=== PATIENT | male | born 1930 | race Caucasian/White ===

== ENCOUNTER 2018-10-11 01:28 | Emergency (ER) | payer MEDICARE, BC ==
[~2018-10-11] VITALS: Ht 170.2 cm; Wt 90.7 kg
[~2018-10-11 01:28] MED LIST: ACYC400; ALPR.25 PO; AMLO5 PO; ASPI325; ASPI81CH PO; ASPI81EC; ATEN25; ATEN50 PO; ATOR40TA; CALCA500CH PO; CALCAVITDA PO; CALGLU500; CHEMO; CILO100 PO; COLE1 PO; COLESTID1 GM PO; CYPR4; Dexamethasone4 MG PO; Diovan160 MG; ERGO400 PO; ERGO50000 PO; FAMO20; FAMO20 PO; FISH OIL 1,0001 EAC1 PO; FISH1000; FOSI10; HYDACE5 PO; ISODIN20 PO; ISOMON20; Isosorbide Mono30 MG PO; KYPROLIS30 MG; MULVITMINF; NAPR500; NEBI5 PO; OMEG1CAP30 PO; PROM25 PO; PROM25S PR; Synthroid175 MCG PO; TICA90TA PO; TOBDEXOPO OP; VALS80 PO; Zithromax250 MG PO; [UNRECOGNIZED DRUG - CODE]; [UNRECOGNIZED DRUG - CODE] PO
[2018-10-11] MEDS ORDERED: COLESTID1 GM PO (02:26)
[2018-10-11] MEDS ORDERED: ERGO400 PO (02:26)
[2018-10-11] MEDS ORDERED: Isosorbide Mono60 MG PO (02:27)
[2018-10-11] MEDS ORDERED: VALS80 PO (02:27)
[2018-10-11] MEDS ORDERED: AMLO5 PO (02:27)
[2018-10-11] MEDS ORDERED: FAMO20 PO (02:28)
[2018-10-11] MEDS ORDERED: PROM25 PO (02:28)
[2018-10-11] MEDS ORDERED: TICA90TA PO (02:28)
[2018-10-11] MEDS ORDERED: Aspir 8181 MG PO (02:28)
[2018-10-11] MEDS ORDERED: OMEG1CAP30 PO (02:28)
== END 2018-10-11 05:00 | disposition home or self-care (01) ==
LOC: ER 01:28
DX: S60.212A Contusion of left wrist, initial encounter (principal); W22.8XXA Striking against or struck by other objects, initial encounter; Z88.8 Allergy status to other drugs, medicaments and biological substances; Z88.2 Allergy status to sulfonamides; Z88.1 Allergy status to other antibiotic agents; Z79.899 Other long term (current) drug therapy; Z79.82 Long term (current) use of aspirin; I25.10 Atherosclerotic heart disease of native coronary artery without angina pectoris; I25.2 Old myocardial infarction; Z86.73 Personal history of transient ischemic attack (TIA), and cerebral infarction without residual deficits; Z87.891 Personal history of nicotine dependence
CPT/HCPCS: 73110; 99283-25

== ENCOUNTER 2018-11-05 09:29 | Emergency (ER) | payer MEDICARE, BC ==
[~2018-11-05] VITALS: Ht 167.6 cm; Wt 72.6 kg
[~2018-11-05 09:29] MED LIST changes: +Aspir 8181 MG PO; +Isosorbide Mono60 MG PO
[2018-11-05 10:13] LABS: BASOPHILS ABSOLUTE AUTO 0.02 K/mm3 (0.00-0.23); BASOPHILS PERCENT AUTO 0 % (0-2); EOSINOPHILS ABSOLUTE AUTO 0.04 K/mm3 (0.00-0.68); EOSINOPHILS PERCENT AUTO 1 % (0-6); Hematocrit 38.5 % (37.0-53.0); Hemoglobin 12.4 g/dL (13.5-17.5); IMMATURE GRAN ABSOLUTE AUTO 0.03 K/mm3 (0.00-0.10); IMMATURE GRAN PERCENT AUTO 0 % (0-1); LYMPHOCYTES ABSOLUTE AUTO 0.54 K/mm3 (0.84-5.20); LYMPHOCYTES PERCENT AUTO 7 % (21-46); MONOCYTES ABSOLUTE AUTO 0.32 K/mm3 (0.16-1.47); MONOCYTES PERCENT AUTO 4 % (4-13); Mean Corpuscular HGB 32.9 pg (26.0-34.0); Mean Corpuscular HGB Conc 32.2 g/dL (31.5-36.5); Mean Corpuscular Volume 102 fL (80-100); NEUTROPHILS PERCENT AUTO 87 % (41-73); RDW Coefficient Variation 14.5 % (11.7-14.2); RDW Standard Deviation 54.5 fL (35.1-46.3); Red Blood Cell Count 3.77 M/mm3 (4.30-5.90); White Blood Cell Count 7.35 K/mm3 (4.00-11.30)
[2018-11-05 10:23] LABS: Alanine Aminotransfer (ALT/SGP 35 U/L (12-78); Albumin, Blood 3.9 g/dL (3.4-5.0); Alk Phos 55 U/L (50-136); Anion Gap 6 mmol/L (6-16); Aspartate Aminotrans (AST/SGOT 27 U/L (12-37); Bilirubin, Total 0.6 mg/dL (0.1-1.0); Blood Urea Nitrogen 27 mg/dL (8-24); Bun/Creatinine Ratio 23.5 (12.0-20.0); CO2, Blood 22 mmol/L (21-32); Calcium, Blood 8.3 mg/dL (8.5-10.1); Chloride, Blood 109 mmol/L (98-108); Creatinine, Blood 1.15 mg/dL (0.60-1.20); Glomerular Filtration Rate >60 (60-); Glucose, Blood 114 mg/dL (70-99); Potassium, Blood 5.3 mmol/L (3.5-5.5); Sodium, Blood 137 mmol/L (136-145); Total Protein, Blood 7.9 g/dL (6.4-8.2)
[2018-11-05 10:40] LABS: Platelet Count 100 K/mm3 (150-400)
[2018-11-05 10:42] LABS: Source, Urine Catheter
[2018-11-05 10:49] LABS: Bilirubin, Urine Neg (Neg); Blood, Urine 2+ (Neg); Glucose Qualitative, Urine Neg (Neg); Ketones, Urine Neg (Neg); Leukocyte Esterase, Urine Neg (Neg); Nitrite, Urine Neg (Neg); Protein, Urine 1+ (Neg); Urobilinogen, Urine NORM (Normal); pH, Urine 6.5 (5.0-8.0)
[2018-11-05 10:56] LABS: Appearance, Urine Clear (Clear); Color, Urine Yellow (P-Yellow)
[2018-11-05 10:59] LABS: White Blood Cells, Urine 0-2 /hpf (0-5)
[2018-11-05 11:00] LABS: Bacteria Rare /hpf; Squamous Epithelial Cells Rare /hpf (Few)
[2018-11-05] MEDS ORDERED: CEPH500 PO (13:01)
== END 2018-11-05 13:30 | disposition home or self-care (01) ==
LOC: ER 09:29
PROVIDERS: Emergency Medicine
DX: L03.116 Cellulitis of left lower limb (principal); I10 Essential (primary) hypertension; Z87.891 Personal history of nicotine dependence
CPT/HCPCS: 36415; 51701; 71046; 80053; 81001; 83605; 84484; 85025; 87040; 93005; 93010; 99284-25; A9270

== ENCOUNTER 2018-11-09 16:32 | Inpatient (IN) | payer MEDICARE, BC ==
[~2018-11-09] VITALS: Ht 167.6 cm; Wt 93.0 kg
[~2018-11-09 16:32] MED LIST changes: +CEPH500 PO
[2018-11-09 17:33] LABS: BASOPHILS ABSOLUTE AUTO 0.01 K/mm3 (0.00-0.23); BASOPHILS PERCENT AUTO 0 % (0-2); EOSINOPHILS ABSOLUTE AUTO 0.04 K/mm3 (0.00-0.68); EOSINOPHILS PERCENT AUTO 0 % (0-6); Hematocrit 36.8 % (37.0-53.0); Hemoglobin 11.8 g/dL (13.5-17.5); IMMATURE GRAN PERCENT AUTO 3 % (0-1); LYMPHOCYTES ABSOLUTE AUTO 0.62 K/mm3 (0.84-5.20); LYMPHOCYTES PERCENT AUTO 5 % (21-46); MONOCYTES ABSOLUTE AUTO 0.72 K/mm3 (0.16-1.47); MONOCYTES PERCENT AUTO 6 % (4-13); Mean Corpuscular HGB 32.9 pg (26.0-34.0); Mean Corpuscular HGB Conc 32.1 g/dL (31.5-36.5); Mean Corpuscular Volume 103 fL (80-100); Mean Platelet Volume 11.4 fL (9.1-12.4); NEUTROPHILS ABSOLUTE AUTO 9.94 K/mm3 (1.96-9.15); NEUTROPHILS PERCENT AUTO 86 % (41-73); Platelet Count 144 K/mm3 (150-400); RDW Coefficient Variation 14.9 % (11.7-14.2); RDW Standard Deviation 57.1 fL (35.1-46.3); Red Blood Cell Count 3.59 M/mm3 (4.30-5.90); White Blood Cell Count 11.63 K/mm3 (4.00-11.30)
[2018-11-09] MEDS ORDERED: DOXY100 (18:08)
[2018-11-09] MEDS ORDERED: VITAMIN D250000 UNIT PO (18:08)
[2018-11-09 18:21] LABS: Albumin, Blood 3.1 g/dL (3.4-5.0); Albumin/Globulin Ratio 0.6 (0.8-1.8); Bilirubin, Total 0.6 mg/dL (0.1-1.0); Bun/Creatinine Ratio 37.1 (12.0-20.0); Calcium, Blood 8.5 mg/dL (8.5-10.1); Creatinine, Blood 1.4 mg/dL (0.60-1.20); Globulin, Blood 5.1 g/dL (2.2-4.0); Potassium, Blood 3.9 mmol/L (3.5-5.5); Total Protein, Blood 8.2 g/dL (6.4-8.2)
--- NOTE | 2018-11-10 02:05 | NUR ---
11/09/18 2255 PT ADMITTED TO ROOM 334 PER CART FROM ER WITH AND DAUGHTER AT SIDE.
[2018-11-10 05:23] LABS: Hematocrit 33.3 % (37.0-53.0); Hemoglobin 10.7 g/dL (13.5-17.5); Mean Corpuscular HGB 33.4 pg (26.0-34.0); Mean Corpuscular HGB Conc 32.1 g/dL (31.5-36.5); Mean Corpuscular Volume 104 fL (80-100); Mean Platelet Volume 11.4 fL (9.1-12.4); Platelet Count 119 K/mm3 (150-400); RDW Coefficient Variation 15.1 % (11.7-14.2); RDW Standard Deviation 58.7 fL (35.1-46.3); White Blood Cell Count 10.31 K/mm3 (4.00-11.30)
[2018-11-10 05:53] LABS: Alanine Aminotransfer (ALT/SGP 44 U/L (12-78); Albumin, Blood 2.9 g/dL (3.4-5.0); Albumin/Globulin Ratio 0.7 (0.8-1.8); Alk Phos 52 U/L (50-136); Anion Gap 7 mmol/L (6-16); Aspartate Aminotrans (AST/SGOT 64 U/L (12-37); Blood Urea Nitrogen 44 mg/dL (8-24); Bun/Creatinine Ratio 36.7 (12.0-20.0); CO2, Blood 20 mmol/L (21-32); Calcium, Blood 8.1 mg/dL (8.5-10.1); Chloride, Blood 108 mmol/L (98-108); Globulin, Blood 4.4 g/dL (2.2-4.0); Glomerular Filtration Rate >60 (60-); Glucose, Blood 123 mg/dL (70-99); Potassium, Blood 3.6 mmol/L (3.5-5.5); Sodium, Blood 135 mmol/L (136-145); Total Protein, Blood 7.3 g/dL (6.4-8.2)
--- NOTE | 2018-11-10 06:16 | NUR ---
SHIFT SUMMARY: 88 Y/O FEMALE RESTED COMFORTABLY ALL SHIFT. PTS LEFT LEG WARM AND RED TO TOUCH WITH +3 EDEMA NOTED. PT ALERT AND ORIENTED X 4. PTS BED LOW POSITION, CALL LIGHT AT SIDE. PT DENIES PAIN OR NAUSEA.
[2018-11-10 06:30] LABS: Source, Urine Clean Catch
[2018-11-10 06:39] LABS: Bilirubin, Urine Neg (Neg); Blood, Urine 4+ (Neg); Glucose Qualitative, Urine Neg (Neg); Ketones, Urine 1+ (Neg); Leukocyte Esterase, Urine Neg (Neg); Nitrite, Urine Neg (Neg); Protein, Urine 3+ (Neg); Urobilinogen, Urine NORM (Normal)
[2018-11-10 06:54] LABS: Appearance, Urine Clear (Clear); Color, Urine Yellow (P-Yellow)
[2018-11-10 07:00] LABS: Amorphous Light (0-Heavy); Bacteria Mod /hpf; Squamous Epithelial Cells Few /hpf (Few)
--- NOTE | 2018-11-10 18:05 | NUR ---
Per admit trigger, I met with Mr. Trevino and his 2 dtrs to offer prayer and spiritual support. Pt was bewildered by integrated logistics support manager presence and stated he is not orthodoxy. Dtrs were pleasantly dismissive. I wished them health and healing and will remain available.
--- NOTE | 2018-11-11 04:04 | NUR ---
SHIFT SUMMARY: 88 Y/O MALE RESTED COMFORTABLY ALL SHIFT, ABLE TO TRANSFER AND AMBULATE VIA STANDBY ASSIST VIA WHEELED WALKER, GAIT SLOW AND STEADY, BED ALARM APPLIED PATIENT TENDED FORGET CALL FOR HELP AT TIMES, ALERT AND ORIENTED X 4, LEFT LEG REMAINS REMAINS RED, SHINY TO TOUCH, AFEBRILE, DENIES PAIN, ABLE TO TAKE ALL MEDICATIONS WHOLE WITH WATER PRIOR TO BEDTIME, BED LOW POSITION, CALL LIGHT AT SIDE, DENIES NAUSEA.
[2018-11-11 04:58] LABS: BASOPHILS ABSOLUTE AUTO 0.01 K/mm3 (0.00-0.23); BASOPHILS PERCENT AUTO 0 % (0-2); Hematocrit 30.5 % (37.0-53.0); LYMPHOCYTES ABSOLUTE AUTO 0.59 K/mm3 (0.84-5.20); LYMPHOCYTES PERCENT AUTO 7 % (21-46); MONOCYTES ABSOLUTE AUTO 0.48 K/mm3 (0.16-1.47); MONOCYTES PERCENT AUTO 5 % (4-13); Mean Corpuscular HGB 33.4 pg (26.0-34.0); Mean Corpuscular HGB Conc 32.8 g/dL (31.5-36.5); Mean Corpuscular Volume 102 fL (80-100); Mean Platelet Volume 11.1 fL (9.1-12.4); Platelet Count 144 K/mm3 (150-400); RDW Coefficient Variation 15.2 % (11.7-14.2); RDW Standard Deviation 57.2 fL (35.1-46.3); Red Blood Cell Count 2.99 M/mm3 (4.30-5.90); White Blood Cell Count 8.83 K/mm3 (4.00-11.30)
[2018-11-11 05:04] LABS: EOSINOPHILS ABSOLUTE AUTO 0.14 K/mm3 (0.00-0.68); EOSINOPHILS PERCENT AUTO 2 % (0-6); IMMATURE GRAN PERCENT AUTO 1 % (0-1); NEUTROPHILS ABSOLUTE AUTO 7.51 K/mm3 (1.96-9.15); NEUTROPHILS PERCENT AUTO 85 % (41-73)
[2018-11-11 05:14] LABS: Anion Gap 7 mmol/L (6-16); Blood Urea Nitrogen 41 mg/dL (8-24); CO2, Blood 20 mmol/L (21-32); Chloride, Blood 110 mmol/L (98-108); Creatinine, Blood 1.17 mg/dL (0.60-1.20); Glomerular Filtration Rate >60 (60-); Glucose, Blood 100 mg/dL (70-99); Potassium, Blood 3.6 mmol/L (3.5-5.5); Sodium, Blood 137 mmol/L (136-145)
[2018-11-11 05:30] LABS: BAND PERCENT MAN 9 % (0-8); BASOPHILS PERCENT MAN 0 % (0-2); EOSINOPHILS PERCENT MAN 0 % (0-6); LYMPHOCYTES ABSOLUTE MAN 0.44 K/mm3 (0.84-5.20); LYMPHOCYTES PERCENT MAN 5 % (21-46); MONOCYTES ABSOLUTE MAN 0.44 K/mm3 (0.16-1.47); MONOCYTES PERCENT MAN 5 % (4-13); NEUTROPHILS ABSOLUTE MAN 7.94 K/mm3 (1.96-9.15); SEG NEUTROPHILS PERCENT MAN 81 % (41-73); TOTAL CELLS COUNTED 100
--- NOTE | 2018-11-11 09:00 | NUR ---
PT PLEASANT COOP A/O. DENIES PAIN. EXCEPT WITH WALKING. ON LEFT LEG. H/R REG, NO MURMER NOTED. DIM/DISTANT, NO TELE. LUNGS CLEAR, RESP EASY, UNLABORED. ON R.A. BT X4 LAST BM YEST. VOIDS INDEPENDANT IN ROOM. BED IN LOW POSITION, CALL LITE IN REACH, CALLS APPROP.
--- NOTE | 2018-11-11 19:21 | NUR ---
PT QUITE PLEASANT TODAY. TALKATIVE. DENIES PAIN EXCEPT WHEN WALKING. LEG IS BEGINNING TO WEEP SOME THIS AFT. PT AMBULATES SBA TO BATHROOM. FWW. NO OTHER CONCERNS AT THIS TIME. BED IN LOW POSITION, CALL LITE IN REACH. SITTING IN CHAIR AT THIS TIME. CALLS APPROP
--- NOTE | 2018-11-12 06:23 | NUR ---
SHIFT SUMMARY PT PLEASANT AND COOPERATIVE. [place]. INDEPENDENT TO SBA WITH FWW TO RESTROOM. PT DOES GET SOME WHEEZING WITH BREATHING AND SOB W/ EXERTION. RELIEVED AFTER RESTING. REDNESS AND SWELLING TO LLE WITH SOME WEEPING OR SEROUS FLUID. PAINFUL WITH MOVEMENT BUT PT REPORTS TOLERABLE AT REST. DENIES ANY NEED FOR PAIN MEDICATION. PT SLEPT WELL THIS EVENING. VITAL SIGNS STABLE. NO ACUTE CHANGES THIS SHIFT. WILL CONTINUE TO MONITOR.
--- NOTE | 2018-11-12 17:24 | NUR ---
PATIENT IS A/OX4, UP WITH FWW AND 1 ASSIST TO RESTROOM AND IN HALLS. PATIENT REPORTS PAIN IN LLE, BUT DENIES NEED FOR MEDICATION TO TREAT. VSS THIS SHIFT, ON RA. LLE REMAINS RED AND SWOLLEN, SEROUS DRAINAGE WEEPING FROM BLISTERED AREAS. PATIENT ON CLINDAMYCIN AND VANCO TO TREAT. 20G IV TO R UPPER ARM WNL AND SL BETWEEN ABX. PATIENT IS CALM AND COOPERATIVE WITH CARE AND CALLS APPROPRIATELY FOR ASSISTANCE.
--- NOTE | 2018-11-13 04:40 | NUR ---
SHIFT SUMMARY PT PLEASANT AND COOPERATIVE. CHILKAT. UBMONTEZ, DOES NOT WANT TO CALL STAFF WHEN WANTING TO GET UP. PT DOES AMBULATE TO THE RESTROOM WITH LITTLE ASSISTANCE AND A FWW. LLE REMAINS VERY SWOLLEN AND RED, CONTINUES TO WEEP. APPEARS TO HAVE LITTLE TO NO IMPROVEMENT. HOWEVER PT FEELS RELATIVELY WELL. DENIES ANY NEED FOR PAIN MEDICATION. SLEPT WELL THROUGH MOST OF THE NIGHT. LUNGS BECOME WHEEZY WHEN EXERTED HIMSELF. NO ACUTE CHANGES THIS SHIFT. VITAL SIGNS STABLE. WILL CONTINUE TO MONITOR.
--- NOTE | 2018-11-13 10:00 | NUR ---
DR SHERMAN IN TO SEE PT. ORDERS MADE. SHOWS ON LIST FOR DR BONE. ASKED DR SHERMAN IF HE TAKING OVER. HE STATES IS [place] PT AND WILL SEE, REQUEST E CALL S/S AND SEE IV COVERED. EXPLAINED THIS NOT IN MY SCOPE. WILL PASS TO CHANGE ADVISOR AND REQUEST. SPOKE TO DR BONE IN [facility], HE WAS TO SEE PT. HE STATES IF DR SHERMAN WANTS TO PLACE UNDERH IS CARE. IS OKAY. SPOKE TO DR CASANOVA AGAIN IN [facility]. REVIEWED ABOVE. HE STATES QUESTION WAS REGARDING IF WHO IS PRIMARY AND SUCH. TOLD HIYEFRI NOT IN MY SCOPE. HE TO FOLLOW.
[2018-11-13 12:18] LABS: Creatinine, Blood 1.11 mg/dL (0.60-1.20); Vancomycin, Trough 10.2 ug/mL (5.0-10.0)
--- NOTE | 2018-11-13 18:34 | NUR ---
PT PLEASANT TODAY. TALKATIVE. LEG IMPROVED IN LESS DEEP RED, AND LESS WEEPING. PT FAMILY CAREGIVER IN TO VISIT TODAY. TAKING MEDS PRESCRIBED. NO OTHER CONCEERNS AT THIS TIME. BED IN LOW POSITION, CALL LITE IN REACH, CALLS APPROP
[2018-11-14 07:11] LABS: BASOPHILS ABSOLUTE AUTO 0.01 K/mm3 (0.00-0.23); BASOPHILS PERCENT AUTO 0 % (0-2); EOSINOPHILS PERCENT AUTO 2 % (0-6); Hemoglobin 9.7 g/dL (13.5-17.5); IMMATURE GRAN ABSOLUTE AUTO 0.12 K/mm3 (0.00-0.10); IMMATURE GRAN PERCENT AUTO 2 % (0-1); LYMPHOCYTES ABSOLUTE AUTO 0.54 K/mm3 (0.84-5.20); LYMPHOCYTES PERCENT AUTO 11 % (21-46); MONOCYTES ABSOLUTE AUTO 0.51 K/mm3 (0.16-1.47); MONOCYTES PERCENT AUTO 10 % (4-13); Mean Corpuscular HGB 32.8 pg (26.0-34.0); Mean Corpuscular HGB Conc 32.3 g/dL (31.5-36.5); Mean Corpuscular Volume 101 fL (80-100); Mean Platelet Volume 10.4 fL (9.1-12.4); NEUTROPHILS PERCENT AUTO 74 % (41-73); Platelet Count 229 K/mm3 (150-400); RDW Coefficient Variation 15.4 % (11.7-14.2); Red Blood Cell Count 2.96 M/mm3 (4.30-5.90); White Blood Cell Count 4.98 K/mm3 (4.00-11.30)
[2018-11-14 07:20] LABS: Albumin, Blood 2.4 g/dL (3.4-5.0); Anion Gap 7 mmol/L (6-16); Blood Urea Nitrogen 24 mg/dL (8-24); Bun/Creatinine Ratio 22.6 (12.0-20.0); CO2, Blood 22 mmol/L (21-32); Calcium, Blood 8.1 mg/dL (8.5-10.1); Chloride, Blood 110 mmol/L (98-108); Creatinine, Blood 1.06 mg/dL (0.60-1.20); Glomerular Filtration Rate >60 (60-); Glucose, Blood 101 mg/dL (70-99); Phosphorus, Blood 3.6 mg/dL (2.5-4.9); Potassium, Blood 4.4 mmol/L (3.5-5.5); Sodium, Blood 139 mmol/L (136-145)
--- NOTE | 2018-11-14 07:20 | NUR ---
a+o, spent majority of shift resting quietly, called but did not wait to get up, saline locked btween abx, room air, call light in reach, no major medical changes noted during shift, bsr completed with oncoming day staff.
--- NOTE | 2018-11-14 19:10 | NUR ---
SHIFT SUMMARY: NO ACUTE CHANGES TO REPORT THIS SHIFT. PT A&O; [place]; CALM AND COOPERATIVE WITH CARE. NO C/O PAIN OR NAUSEA THIS SHIFT. LLE CELLULITIS; EXTENT MARKED; 3+ EDEMA; PATIENT UP c 1 ASSIST c FWW TO BATHROOM; SLOW, WEAK GAIT; PT USES CALL LIGHT APPROPRIATELY. IV ABX CONTINUING. REPORT GIVEN TO ONCOMING RN.
--- NOTE | 2018-11-15 07:27 | NUR ---
a+o, call light in reach, saline locked room air, bsr given to day shift
[2018-11-15 11:42] LABS: Vancomycin, Trough 11.6 ug/mL (5.0-10.0)
--- NOTE | 2018-11-15 17:53 | NUR ---
SHIFT SUMMARY AWAITING PLACEMENT FOR THIS PT AT [facility] ON FRIDAY [facility]. PT USES A FWW W/1 PERSON STANDBY ASSIST TO BATHROOM. CELLULITIS REDNESS AND SWELLING IN LEFT LEG APPEARS TO BE MUCH IMPROVED TODAY. IV ANTIBIOTICS GIVEN THROUGHOUT SHIFT. I DID VERIFY WITH PHARMACY THAT THEY HAD SEEN THE NEW VANCO TROUGH AND ADJUSTED BEFORE I GAVE THE VANCO TODAY. NO OTHER CHANGES TO REPORT. PT IS A&O X4 AND CALLS APPROPRIATELY FOR ASSISTANCE.
--- NOTE | 2018-11-16 05:20 | NUR ---
SHIFT SUMMARY A/O, ABLE TO MAKE NEEDS KNOWN. COOPERATIVE WITH CARE. CALLS AND ANSWERS QUESTIONS APPROPRIATELY. NO C/O PAIN/DISCOMFORT. 1P ASSIST /c FWW TO BATHROOM. STEADY AMBULATION. APPEARED TO REST MUCH OF THE NIGHT. ANTICIPATING DISCHARGE. BED REMAINED IN LOWEST POSITION. CALL LIGHT AND BELONGINGS WITHIN REACH. WCTM. REPORT TO ONCANDREIA RN.
[2018-11-16] MEDS ORDERED: Questran4 GM PO (12:26)
[2018-11-16] MEDS ORDERED: LOSA50 PO (12:28)
[2018-11-16] MEDS ORDERED: ACET325 PO (12:29)
[2018-11-16] MEDS ORDERED: Cleocin HCl300 MG PO (12:30)
[2018-11-16] MEDS ORDERED: Vsl#3 Capsule1 EACH PO (12:30)
[2018-11-16] MEDS ORDERED: ENOX40I SC (12:30)
[2018-11-16] MEDS ORDERED: AMOCLA875 PO (12:31)
--- NOTE | 2018-11-16 15:35 | NUR ---
DISCHARGE PT WAS D/C'D TO SNF, [facility]. HAS AMBULATED IN HALLWAYS, TOLERATING DIET, LLE UNCHANGED DURING MY SHIFT. NO CONCERNS OR COMPLAINTS.
== END 2018-11-16 15:34 | DRG 872 ==
LOC: ER 16:32 → MEDS 20:51 → ER 22:44 → MEDS 22:50
PROVIDERS: Hospitalist; Internal Medicine; Pharmacist; Physician Assistant; ADMIT Internal Medicine
DX: A41.9 Sepsis, unspecified organism (principal); L03.116 Cellulitis of left lower limb; N39.0 Urinary tract infection, site not specified; I12.9 Hypertensive chronic kidney disease with stage 1 through stage 4 chronic kidney disease, or unspecified chronic kidney disease; N18.3 Chronic kidney disease, stage 3 (moderate); I25.10 Atherosclerotic heart disease of native coronary artery without angina pectoris; N40.1 Benign prostatic hyperplasia with lower urinary tract symptoms; D63.1 Anemia in chronic kidney disease; Z85.820 Personal history of malignant melanoma of skin
CPT/HCPCS: 36415; 80048; 80053; 80069; 80202; 81001; 82565; 82784; 84165; 85025; 85027; 86334; 87077; 87086; 87186; 93971; 96361; 96374; 97110; 97116; 97161; 97166; 97530; 97535; 99285-25; A9270-GY; J1650; J2405; J2765; J3370; J7030; J7050

== ENCOUNTER 2019-01-08 00:28 | Day surgery (SDC) | payer MEDICARE, BC ==
[~2019-01-08 00:28] MED LIST changes: +ACET325 PO; +AMOCLA875 PO; +Cleocin HCl300 MG PO; +DOXY100; +ENOX40I SC; +LOSA50 PO; +Questran4 GM PO; +VITAMIN D250000 UNIT PO; +Vsl#3 Capsule1 EACH PO
--- NOTE | 2019-01-08 11:03 | NUR ---
PATIENT PREVOID SCAN SHOWED 235 MLS. POST VOID RESIDUALS SHOWED 127. PATIENT HAD VOIDED ABOUT 2 HOURS BEFORE SCAN AND DRANK ABOUT 200 MLS.
== END 2019-01-08 11:00 | disposition home or self-care (01) ==
LOC: ATC 00:28
DX: R35.1 Nocturia (principal); N18.3 Chronic kidney disease, stage 3 (moderate)
CPT/HCPCS: 51798

== ENCOUNTER 2019-01-11 10:28 | Day surgery (SDC) | payer MEDICARE, BC ==
[~2019-01-11] VITALS: Ht 167.6 cm; Wt 86.2 kg
--- NOTE | 2019-01-11 11:34 | NUR ---
01/11/19 1134 Veronica Taylor DURING CASE PROVIDED BY [facility].JAR. PT TOLERATED PROCEDURE WELL.
--- NOTE | 2019-01-11 12:45 | NUR ---
01/11/19 1245 Alaina Andrews LATE ENTRY FOR TODAY AT 1215 ASSUMED CARE OF PATIENT FROM PETER Quezada RN. PATIENT HAS NO C/O PAIN, INCISION SITE IS OOZING DARK RED BLOOD, RN APPLIED PRESSURE NILSON GAUZE. OOZING STOPPED. PATIENT, , AND CAREGIVE INSTRUCTED THAT INCISION MIGHT OOZE PERIODICALLY AND THAT ALL THEY NEED TO DO IS DAB AT SITE OR APPLY SLIGHT PRESSURE. PATIENT, , AND CAREGIVER VOICE UNDERSTANDING.
== END 2019-01-11 12:40 | disposition home or self-care (01) ==
LOC: ORSCSDS 10:28
PROVIDERS: Otolaryngology
PROC: 03BT0ZX Excision of Left Temporal Artery, Open Approach, Diagnostic (ICD-10-PCS; principal; 2019-01-11 11:30)
DX: M31.6 Other giant cell arteritis (principal); Z86.73 Personal history of transient ischemic attack (TIA), and cerebral infarction without residual deficits; I10 Essential (primary) hypertension; E78.5 Hyperlipidemia, unspecified; Z87.891 Personal history of nicotine dependence; Z79.899 Other long term (current) drug therapy
CPT/HCPCS: 82947; 88305; 88313; J2250; J3010; J7120

== ENCOUNTER 2020-05-19 13:50 | Inpatient (IN) | payer MEDICARE, BC ==
[~2020-05-19] VITALS: Ht 172.7 cm; Wt 91.3 kg
[~2020-05-19 13:50] MED LIST changes: +COLESTID1 G1 PO
[2020-05-19 15:02] LABS: Source, Urine Clean Catch
[2020-05-19 15:07] LABS: Appearance, Urine Clear (Clear); Bilirubin, Urine Neg (Neg); Blood, Urine 1+ (Neg); Color, Urine Yellow (P-Yellow); Glucose Qualitative, Urine Neg (Neg); Ketones, Urine Neg (Neg); Leukocyte Esterase, Urine Neg (Neg); Nitrite, Urine Neg (Neg); Protein, Urine 1+ (Neg); Urobilinogen, Urine NORM (Normal); pH, Urine 6.5 (5.0-8.0)
[2020-05-19 15:08] LABS: BASOPHILS ABSOLUTE AUTO 0.02 K/mm3 (0.00-0.23); BASOPHILS PERCENT AUTO 0 % (0-2); EOSINOPHILS ABSOLUTE AUTO 0.07 K/mm3 (0.00-0.68); EOSINOPHILS PERCENT AUTO 1 % (0-6); Hemoglobin 8.6 g/dL (13.5-17.5); IMMATURE GRAN ABSOLUTE AUTO 0.06 K/mm3 (0.00-0.10); IMMATURE GRAN PERCENT AUTO 1 % (0-1); LYMPHOCYTES ABSOLUTE AUTO 0.61 K/mm3 (0.84-5.20); LYMPHOCYTES PERCENT AUTO 6 % (21-46); MONOCYTES ABSOLUTE AUTO 0.65 K/mm3 (0.16-1.47); MONOCYTES PERCENT AUTO 7 % (4-13); Mean Corpuscular HGB 32.3 pg (26.0-34.0); Mean Corpuscular HGB Conc 30.7 g/dL (31.5-36.5); Mean Corpuscular Volume 105 fL (80-100); NEUTROPHILS ABSOLUTE AUTO 8.08 K/mm3 (1.96-9.15); NEUTROPHILS PERCENT AUTO 85 % (41-73); Platelet Count 253 K/mm3 (150-400); RDW Coefficient Variation 14.1 % (11.7-14.2); RDW Standard Deviation 53.7 fL (35.1-46.3); Red Blood Cell Count 2.66 M/mm3 (4.30-5.90); White Blood Cell Count 9.49 K/mm3 (4.00-11.30)
[2020-05-19 15:14] LABS: Bacteria Few /hpf; Squamous Epithelial Cells Few /hpf (Few); White Blood Cells, Urine 0-2 /hpf (0-5)
[2020-05-19 15:35] LABS: Alanine Aminotransfer (ALT/SGP 19 U/L (12-78); Albumin, Blood 3.2 g/dL (3.4-5.0); Albumin/Globulin Ratio 0.7 (0.8-1.8); Alk Phos 53 U/L (50-136); Anion Gap 7 mmol/L (6-16); Aspartate Aminotrans (AST/SGOT 16 U/L (12-37); Bilirubin, Total 0.4 mg/dL (0.1-1.0); Blood Urea Nitrogen 31 mg/dL (8-24); Bun/Creatinine Ratio 28.4 (12.0-20.0); CO2, Blood 23 mmol/L (21-32); Calcium, Blood 8.9 mg/dL (8.5-10.1); Chloride, Blood 108 mmol/L (98-108); Creatinine, Blood 1.09 mg/dL (0.60-1.20); Globulin, Blood 4.6 g/dL (2.2-4.0); Glomerular Filtration Rate >60 (60-); Glucose, Blood 123 mg/dL (70-99); Potassium, Blood 5.2 mmol/L (3.5-5.5); Sodium, Blood 138 mmol/L (136-145); Total Protein, Blood 7.8 g/dL (6.4-8.2)
[2020-05-19 16:19] LABS: International Normalized Ratio 0.98; Prothrombin Time Results 10.5 Sec (9.7-11.5)
[2020-05-19 17:13] LABS: Percent Saturation 17.8 % (20.0-50.0)
[2020-05-19] MEDS ORDERED: SYNTHROID175 MC1 PO (17:43)
[2020-05-19] MEDS ORDERED: KLOR-CON 1010 MEQ PO (17:43)
[2020-05-19] MEDS ORDERED: THERA-D2000 UNIT PO (17:44)
[2020-05-19 19:47] LABS: Influenza A, PCR Negative (NEGATIVE); Influenza B, PCR Negative (NEGATIVE); Resp Syncytial Virus, PCR Negative (NEGATIVE); SARS-Cov-2 (COVID-19) PCR, MMC Negative (NEGATIVE)
[2020-05-19 22:24] LABS: Source, Urine Catheter
[2020-05-19 22:29] LABS: Bilirubin, Urine Neg (Neg); Blood, Urine Neg (Neg); Glucose Qualitative, Urine Neg (Neg); Ketones, Urine Neg (Neg); Leukocyte Esterase, Urine Neg (Neg); Nitrite, Urine Neg (Neg); Protein, Urine Neg (Neg); Urobilinogen, Urine NORM (Normal)
[2020-05-19 22:37] LABS: Appearance, Urine Clear (Clear); Color, Urine Yellow (P-Yellow)
--- NOTE | 2020-05-20 01:48 | NUR ---
CITICAL TROPONIN THIS RN NOTIFIED OF CRITICAL VALUE SO PROVIDER WAS CONTACTED AND HEPARIN STARTED. PLAN FOR PT TO GO TO [facility] AM.
--- NOTE | 2020-05-20 05:55 | NUR ---
ENVIRONMENTAL COMMUNICATIONS SPECIALIST SUMMARY PT ARIIVED TO THE UNIT FROM THE ER DENIYING ANY PAIN OR NAUSEA. PT ATTEMPTED SEVERAL TIMES TO VOID W/O SUCCESS SO A BLADDER SCAN REVEIELED SIGNIFICANT RETAINED URINE. ORDER FOR CATHETER WAS OBTAINED AND CATHETER PLACED WHICH BROUGHT RELIEF. REPEAT TROPONIN SHOWED CH VALUE SO PROVIDER CONTACTED AND HEPARIN STARTED. PT GIVEN HYDRALAZINE X2 FOR SBP >140 PER ORDER. PT BEGAN TO C/O C/P AT END OF SHIFT SO NITRO ORDER WAS OBTAINED AND GIVEN X1 WHICH BROUGHT RELIEF. BP STABLE AND NOT SIGNIFICANT TELE CHANGES. PT IS VERY CONFUSED AND CANNOT MAKE HIS NEEDS KNOWN COMPLETELY. WILL REPORT TO DAY RN THAT OUT OF TOWN COLLECTION CLERK NEEDS TO BE CONTACTED HUBER. PT NPO SINCE 0000. WCTM.
--- NOTE | 2020-05-20 06:11 | NUR ---
PT'S UPDATED ON STATUS. TOILIO [phone]
[2020-05-20 06:19] LABS: Hematocrit 27.2 % (37.0-53.0); Hemoglobin 8.6 g/dL (13.5-17.5); Mean Corpuscular HGB 32.6 pg (26.0-34.0); Mean Corpuscular HGB Conc 31.6 g/dL (31.5-36.5); Mean Corpuscular Volume 103 fL (80-100); Mean Platelet Volume 9.8 fL (9.1-12.4); Platelet Count 205 K/mm3 (150-400); RDW Coefficient Variation 14.3 % (11.7-14.2); RDW Standard Deviation 53.2 fL (35.1-46.3); Red Blood Cell Count 2.64 M/mm3 (4.30-5.90)
[2020-05-20 06:41] LABS: BAND PERCENT MAN 3 % (0-8); BASOPHILS PERCENT MAN 0 % (0-2); EOSINOPHILS PERCENT MAN 0 % (0-6); LYMPHOCYTES ABSOLUTE MAN 0.43 K/mm3 (0.84-5.20); LYMPHOCYTES PERCENT MAN 3 % (21-46); MONOCYTES ABSOLUTE MAN 0.29 K/mm3 (0.16-1.47); MONOCYTES PERCENT MAN 2 % (4-13); NEUTROPHILS ABSOLUTE MAN 13.87 K/mm3 (1.96-9.15); SEG NEUTROPHILS PERCENT MAN 92 % (41-73); TOTAL CELLS COUNTED 100
[2020-05-20 06:50] LABS: Calcium, Blood 8.7 mg/dL (8.5-10.1); Creatinine, Blood 1.46 mg/dL (0.60-1.20); Potassium, Blood 4.3 mmol/L (3.5-5.5)
[2020-05-20 06:55] LABS: Troponin I 3.37 ng/mL (0.000-0.040)
--- NOTE | 2020-05-20 10:20 | NUR ---
DR. NGUYEN AT BEDSIDE. DISCUSSED POC. NOTIFIED HER PATIENT REPORTED CHEST PAIN AND RECEIVED ONE NITRO AT 0542. PATIENT ALSO REPORTED CHEST PAIN WHEN GETTING UP TO THE BEDSIDE COMMODE AT 0700 BUT IT ONLY LASTED FOR A FEW SECONDS AND THEN HE DENIED IT AGAIN. SHE LOOKED AT WOUND TO PATIENTS L GREAT TOE AND REDDENED LLE. DR. NGUYEN STATES PLAN IS FOR MEDICAL MANAGEMENT AT THIS TIME. EKG OBTAINED WITH DR. NGUYEN AT BEDSIDE. 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 THIS HAS CHANGED FROM HIS EKG THAT WAS PERFORMED IN THE EMERGENCY DEPARTMENT, DR. NGUYEN REVIEWED.
--- NOTE | 2020-05-20 10:34 | NUR ---
DR JENKINS AT BEDSIDE, EKG IN PROGRESS. PER DR RAMOS EKG SHOWS CONCERNING CHANGES. DR JENKINS DISCUSSED PT'S CONDITION AND HER CONCERNS WITH THE PT, INCLUDING DISCUSSING HIS CODE STATUS. THIS RN AT BEDSIDE FOR DISCUSSION WELL. PT CLEARLY STATES THAT HE WANTS TO REMAIN FULL CODE STATUS AT THIS TIME. PT STATES "DO WHAT YOU NEED TO TO KEEP ME GOING." DR JENKINS STATES SHE WILL CALL PT'S AND UPDATE HER ON HIS CONDITION AT THIS TIME.
--- NOTE | 2020-05-20 12:52 | NUR ---
SPOKE WITH PATIENT'S DAUGHTER BRADEN GOPAL ON THE PHONE WITH PATIENT'S 'S PERMISSION. PATIENT'S AND PATIENT'S SON IN LAW AT BEDSIDE.
--- NOTE | 2020-05-20 14:15 | NUR ---
DR. DASILVA CALLED. CLARIFIED THAT SHE WANTS 1 UNIT PRBCS GIVEN, NOT 1 UNIT PLATELETS. READ BACK AND VERIFIED.
--- NOTE | 2020-05-20 17:25 | NUR ---
PRBC INFUSING PER MD ORDERS. PT REPORTS NO CHEST PAIN, SOB, VSS. WILL CONTINUE TO MONITOR.
--- NOTE | 2020-05-20 18:31 | NUR ---
PT HAS NOT COMPLAINED OF CHEST PAIN ALL DAY DESPITE INCREASING TROPONIN LEVELS. PT HAD FAMILY COME VISIT HIM AT BEDSIDE. DR NGUYEN STATES NO CARDIAC INTERVENTIONS UNTIL OTHER MEDICAL ISSUES HAVE BEEN RESOLVED. PT RECEIVED IV ABX AND 1 UNIT PRBCs. DIET CHANGED TO CARDIAC DIET PER MD. PT WILL BE NPO AFTER MN FOR LIPID PANEL LAB DRAW IN AM.
--- NOTE | 2020-05-21 00:53 | NUR ---
ASSUMED CARE OF PATIENT AT APPROXIMATELY 1900 FROM ISABELLA Bolton RN AND VERONA Bush RN. PATIENT VERY HARD OF HEARING; ALERT AND ORIENTED; RESTING IN BETWEEN CARE ROUNDING. PATIENT DENIES CP/PRESSURE, PAIN ELSEWHERE AND DIZZINESS. PATIENT REPORTED HE WAS NAUSEOUS WHILE HE WAS LAYING FLAT FOR A BED/ATTENDS CHANGE. URINARY CATH DRAINING CLEAR YELLOW URINE; INCONTINENT OF LARGE BM AND A SMEAR; OCCULT SAMPLE SENT. NSR 1ST DEGREE BBB ON TELE; OXYGEN SATURATION ABOVE 90% ON 1LPM VIA NC; REFUSING CPAP. HEPARIN GTT; INCREASED ONCE. PATIENT CURRENTLY RESTING IN BED; CALL LIGHT IN REACH; BED IN LOWEST POSISTION; BED ALARM ON.
[2020-05-21 04:19] LABS: Hematocrit 28.7 % (37.0-53.0); Mean Corpuscular HGB Conc 31.4 g/dL (31.5-36.5); Mean Corpuscular Volume 102 fL (80-100); Mean Platelet Volume 10.2 fL (9.1-12.4); Platelet Count 195 K/mm3 (150-400); RDW Coefficient Variation 14.9 % (11.7-14.2); RDW Standard Deviation 56.1 fL (35.1-46.3); Red Blood Cell Count 2.81 M/mm3 (4.30-5.90); White Blood Cell Count 10.23 K/mm3 (4.00-11.30)
[2020-05-21 04:49] LABS: Albumin, Blood 2.7 g/dL (3.4-5.0); Anion Gap 6 mmol/L (6-16); Blood Urea Nitrogen 39 mg/dL (8-24); Bun/Creatinine Ratio 31.5 (12.0-20.0); CHOL/HDL RATIO 3.6; CO2, Blood 26 mmol/L (21-32); Calcium, Blood 8.7 mg/dL (8.5-10.1); Chloride, Blood 105 mmol/L (98-108); Cholesterol 113 mg/dL (50-200); Creatinine, Blood 1.24 mg/dL (0.60-1.20); Glomerular Filtration Rate 59 (60-); Glucose, Blood 119 mg/dL (70-99); HDL Cholesterol 31 mg/dL (>39); LDL/HDL RATIO 1.8; Low Density Lipoprotein Chol 56 mg/dL (0-110); Phosphorus, Blood 3.1 mg/dL (2.5-4.9); Potassium, Blood 3.8 mmol/L (3.5-5.5); Sodium, Blood 137 mmol/L (136-145); Triglycerides 132 mg/dL (30-160); Very Low Density Lipoprot Chol 26 mg/dL (6-32)
--- NOTE | 2020-05-21 06:41 | NUR ---
PATIENT SLEPT ABOUT NINE HOURS LAST NIGHT; INCONTINENT OF MULTIPLE BMS. TROPONIN TRENDING DOWN; HEPARIN GTT RATE INCREASED. NO OTHER ACUTE CHANGES TO REPORT.
[2020-05-21 08:30] LABS: Stool Occult Bld Immuno 1 Negative (NEGATIVE)
[2020-05-21] MEDS ORDERED: FURO20 PO (11:54)
[2020-05-21] MEDS ORDERED: NEBI5 PO (11:55)
[2020-05-21] MEDS ORDERED: FISH OIL PO (11:57)
[2020-05-21 16:48] LABS: Free Thyroxine 0.92 ng/dL (0.70-1.60); Triiodothyronine, Free 0.7 pg/mL (2.18-3.98)
--- NOTE | 2020-05-21 18:47 | NUR ---
SHIFT SUMMARY: NO ACUTE CHANGES T/OUT SHIFT. PT CONTINUES A&OX4, TRANSITIONED TO ROOM AIR, MAINTAINED O2 SATS >92%, SINUS RHYTHM ON MONITOR. HEPARIN GTT WAS DC'D PER ORDERS. DIURESIS CONTINUES, PT PLACED ON 1500 ML FLUID RESTRICTION. PT AMBULATED TO AND FROM RESTROOM USING FWW WITH PT. PT C/O NAUSEA INTERMITTENTLY T/OUT SHIFT, MEDICATED PER ORDERS, REPORTS IMPROVEMENT. WILL CONTINUE TO MONITOR AND TREAT UNTIL CHANGE OF SHIFT.
[2020-05-21] MEDS ORDERED: ACET500 PO (22:31)
--- NOTE | 2020-05-21 22:56 | NUR ---
ASSUMED CARE OF PATIENT AT APPROXIMATELY 1900 FROM PAULO Ness RN. PATIENT VERY HARD OF HEARING; ALERT AND ORIENTED; RESTING IN BETWEEN CARE ROUNDING. PATIENT DENIES CP/PRESSURE AND DIZZINESS. PATIENT REPORTS PAIN IN HIS NECK; REPORTS HE TAKES TYLENOL PM AT HOME; MEDICATED WITH TYLENOL AND GIVEN NECK PILLOW AND REPORTS IMPROVEMENT "I THINK I MAY HAVE A DISC OUT OF PLACE" . URINARY CATH DRAINING CLEAR YELLOW URINE. NSR 1ST DEGREE BBB ON TELE; OXYGEN SATURATION ABOVE 90% ON ROOM AIR; REFUSING CPAP. PIV S/L. PATIENT CURRENTLY RESTING IN BED; CALL LIGHT IN REACH; BED IN LOWEST POSISTION; BED ALARM ON.
[2020-05-22 05:08] LABS: BASOPHILS PERCENT AUTO 0 % (0-2); EOSINOPHILS ABSOLUTE AUTO 0.13 K/mm3 (0.00-0.68); EOSINOPHILS PERCENT AUTO 2 % (0-6); Hematocrit 27.1 % (37.0-53.0); Hemoglobin 8.7 g/dL (13.5-17.5); IMMATURE GRAN ABSOLUTE AUTO 0.05 K/mm3 (0.00-0.10); IMMATURE GRAN PERCENT AUTO 1 % (0-1); LYMPHOCYTES ABSOLUTE AUTO 0.66 K/mm3 (0.84-5.20); LYMPHOCYTES PERCENT AUTO 11 % (21-46); MONOCYTES ABSOLUTE AUTO 0.46 K/mm3 (0.16-1.47); MONOCYTES PERCENT AUTO 8 % (4-13); Mean Corpuscular HGB 32.6 pg (26.0-34.0); Mean Corpuscular HGB Conc 32.1 g/dL (31.5-36.5); Mean Corpuscular Volume 102 fL (80-100); Mean Platelet Volume 10.2 fL (9.1-12.4); NEUTROPHILS ABSOLUTE AUTO 4.79 K/mm3 (1.96-9.15); NEUTROPHILS PERCENT AUTO 79 % (41-73); Platelet Count 201 K/mm3 (150-400); RDW Coefficient Variation 14.5 % (11.7-14.2); RDW Standard Deviation 53.5 fL (35.1-46.3); Red Blood Cell Count 2.67 M/mm3 (4.30-5.90); White Blood Cell Count 6.09 K/mm3 (4.00-11.30)
[2020-05-22 05:33] LABS: Anion Gap 8 mmol/L (6-16); Blood Urea Nitrogen 45 mg/dL (8-24); Bun/Creatinine Ratio 39.5 (12.0-20.0); CO2, Blood 24 mmol/L (21-32); Calcium, Blood 8.6 mg/dL (8.5-10.1); Chloride, Blood 103 mmol/L (98-108); Creatinine, Blood 1.14 mg/dL (0.60-1.20); Glomerular Filtration Rate >60 (60-); Glucose, Blood 113 mg/dL (70-99); Potassium, Blood 3.7 mmol/L (3.5-5.5); Sodium, Blood 135 mmol/L (136-145)
--- NOTE | 2020-05-22 06:02 | NUR ---
PATIENT SLEPT MOST OF SHIFT. NO ACUTE CHANGES TO REPORT. VSS.
--- NOTE | 2020-05-22 12:48 | NUR ---
Initial Visit: Palliative Care Consult for Advanced Care Planning and AD/POLST. 89 year old male admitted for acute CHF. Pt's medical history and comorbidities include: ASCVD, HTN, Diastolic CHF, SD X4, Hyperlipidemia, CKD3, Multiple Myeloma, BPH, CVA, SUDHEER, Pituitary Adenoma, Anemia, and Hearing Loss. Pt is sitting in chair upon arrival. Pt is A&OX4 and reports a tolerable 3/10 pain in his neck. Pt denies dyspnea and nausea at this time. Pt does experience mild nausea when lying down. This RN is accompanied by nursing unit clerk Iveth. Engaged in therapeutic discussion regarding advanced care planning. Listened as Pt reports being and having 1 bioligical living daughter. Pt lives with his and reports no voodoo or spiritual beliefs. Pt reports having a step daughter who is providing care and support to his during his hospital stay. Pt reports he and his receives caregiver support 4 hours a day, 6 days a week. Listened as Pt reports having lost 2 daughters in the past, one unexpectedly, and the other from cancer. 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 Pt reports ability to ambulate independently at home and uses walker outside of home. Pt reports ability to dress and bathe himself. Educated Pt on disease process including trajectory of disease. Educated on the importance of having routine conversations with PCP and developing multiple plans as disease progresses. Engaged in therapeutic conversation regarding code status and considering completing AD/POLST. Educated on life sustaining treatments including risk factors. Pt states as long as his is alive he would like to remain a full code. Pt reports having AD and POLST completed at home. Offered therapeutic listening. Pt expresses appreciation of visit and reports no concerns at this time. Spoke with Bedside RN Jitendra and discussed case. No concerns reported at this time. Palliative Care will remain available if called upon.
--- NOTE | 2020-05-22 19:28 | NUR ---
SHIFT SUMMARY: PT CONTINUES A&OX4, RESP EVEN AND UNLABORED ON ROOM AIR, SINUS RHYTHM/ROSALINA W/ 1ST DEGREE BLOCK ON MONITOR. PT OOB TO BEDSIDE CHAIR FOR MEALS, USES FWW APPROPRIATELY. PT IS [place], HAS HIS HEARING AIDS IN ROOM BUT REPORTS THE BATTERY IN THE RIGHT ONE. PT RECEIVED RESTING PART OF STRESS TEST TODAY, TOLERATED WELL, TO RECEIVE AYLEEN SCAN TOMORROW, ISOSORBIDE HELD PER DR NGUYEN. PT CONTINUES ON 1500ML FLUID RESTRICTION, TOLERATING WELL. PT IS RESTING QUIETLY IN ROOM AT THIS TIME. BEDSIDE REPORT GIVEN TO INGRID ZHONG.
[2020-05-23 04:39] LABS: BASOPHILS ABSOLUTE AUTO 0.01 K/mm3 (0.00-0.23); BASOPHILS PERCENT AUTO 0 % (0-2); EOSINOPHILS ABSOLUTE AUTO 0.19 K/mm3 (0.00-0.68); EOSINOPHILS PERCENT AUTO 4 % (0-6); Hemoglobin 8.8 g/dL (13.5-17.5); IMMATURE GRAN ABSOLUTE AUTO 0.03 K/mm3 (0.00-0.10); IMMATURE GRAN PERCENT AUTO 1 % (0-1); LYMPHOCYTES ABSOLUTE AUTO 0.75 K/mm3 (0.84-5.20); LYMPHOCYTES PERCENT AUTO 16 % (21-46); MONOCYTES ABSOLUTE AUTO 0.49 K/mm3 (0.16-1.47); MONOCYTES PERCENT AUTO 11 % (4-13); Mean Corpuscular HGB 31.4 pg (26.0-34.0); Mean Corpuscular HGB Conc 31.4 g/dL (31.5-36.5); Mean Corpuscular Volume 100 fL (80-100); NEUTROPHILS ABSOLUTE AUTO 3.19 K/mm3 (1.96-9.15); NEUTROPHILS PERCENT AUTO 69 % (41-73); Platelet Count 211 K/mm3 (150-400); RDW Standard Deviation 51.5 fL (35.1-46.3); White Blood Cell Count 4.66 K/mm3 (4.00-11.30)
[2020-05-23 04:54] LABS: Anion Gap 6 mmol/L (6-16); Blood Urea Nitrogen 41 mg/dL (8-24); Bun/Creatinine Ratio 37.6 (12.0-20.0); CO2, Blood 26 mmol/L (21-32); Calcium, Blood 8.8 mg/dL (8.5-10.1); Chloride, Blood 105 mmol/L (98-108); Creatinine, Blood 1.09 mg/dL (0.60-1.20); Glomerular Filtration Rate >60 (60-); Glucose, Blood 97 mg/dL (70-99); Potassium, Blood 4.3 mmol/L (3.5-5.5); Sodium, Blood 137 mmol/L (136-145)
[2020-05-23 04:58] LABS: Albumin, Blood 2.6 g/dL (3.4-5.0); Anion Gap 6 mmol/L (6-16); Blood Urea Nitrogen 41 mg/dL (8-24); CO2, Blood 26 mmol/L (21-32); Calcium, Blood 8.6 mg/dL (8.5-10.1); Chloride, Blood 105 mmol/L (98-108); Creatinine, Blood 1.08 mg/dL (0.60-1.20); Glomerular Filtration Rate >60 (60-); Glucose, Blood 98 mg/dL (70-99); Phosphorus, Blood 2.4 mg/dL (2.5-4.9); Potassium, Blood 4.3 mmol/L (3.5-5.5); Sodium, Blood 137 mmol/L (136-145)
--- NOTE | 2020-05-23 05:13 | NUR ---
SHIFT SUMMARY NO ACUTE CHANGES THIS SHIFT. VSS. PT REMAINS AXO. IN SR/SB. REMAINS OIN RA. SPRING PATENT AND DRAINING. PT HAS DENIED CP/PRESSURE THIS SHUFT. NPO POST MIDNIGHT FOR 2ND PART OF STRESS TEST. HAS NOT RECEIVED NAY NITRATES. REMAINS WITHIN 1500ML FLUID RESTRICTION. OTHERWISE, PT HAS BEEN RESTING QUIETELY IN BED. WILL CONTINUE TO MONITOR UNTIL SHIFT CHANGE.
--- NOTE | 2020-05-23 18:03 | NUR ---
SHIFT SUMMARY; ASSUMED CARE AT 0700, REPORT FROM SHEILA. Fariha/Fariha/PATRICIO4 THROUGHOUT SHIFT. LEFT LEG REMAINS RED AND WARM FROM BELOW KNEE TO FOOT, OUTLINED REDNESS PER ORDER. LEFT FOOT SWOLLEN AND BRUISED WITH LEFT GREAT TOE SCABBED FROM BEING RAN OVER BY A BAILEY WHEELCHAIR. LEFT PEDAL PULSE PALPABLE. WORKED WITH PT TODAY, UP TO CHAIR FOR MEALS WITH WALKER AND 1 PERSON ASSIST. STRESS TEST COMPLETE TODAY. NO ACUTE MEDICAL CHANGES, DENIES CP, VSS. WILL CONTINUE TO TREAT AND MONITOR UNTIL CHANGE OF SHIFT.
--- NOTE | 2020-05-24 04:56 | NUR ---
NURSES' ASSOCIATION COUNSELOR SUMMARY PT WAS AXO X3 THIS SHIFT W BOUTS OF CONFUSION. NO CHEST PAIN OR SOB THIS SHIFT. O2 SATS >92 ON RM AIR. CLEMENTINE FIGUEREDO'D PER PROVIDER NOTE. HYDRALAZINE GIVEN X2 FOR SBP >140. PT HAS BEEN NSR IN THE 60'S THIS SHIFT. PT C/O PAIN IN HIS HIPS THIS SHIFT, RELEIVED WITH HEAT PAD AND TYLENOL. WILL REPORT TO COSME QUINTERO, WCTM.
[2020-05-24 05:39] LABS: Albumin, Blood 2.7 g/dL (3.4-5.0); Anion Gap 8 mmol/L (6-16); Blood Urea Nitrogen 42 mg/dL (8-24); Bun/Creatinine Ratio 39.3 (12.0-20.0); CO2, Blood 23 mmol/L (21-32); Calcium, Blood 8.7 mg/dL (8.5-10.1); Chloride, Blood 105 mmol/L (98-108); Creatinine, Blood 1.07 mg/dL (0.60-1.20); Glomerular Filtration Rate >60 (60-); Glucose, Blood 104 mg/dL (70-99); Phosphorus, Blood 3.1 mg/dL (2.5-4.9); Potassium, Blood 4.3 mmol/L (3.5-5.5); Sodium, Blood 136 mmol/L (136-145)
--- NOTE | 2020-05-24 18:00 | NUR ---
SHIFT SUMMARY; ASSUMED CARE AT 0700, REPORT FROM INGRID ARAIZA. A/A/OX4 THROUGHOUT DAY, SITS IN CHAIR FOR MEALS, REPOSITIONS SELF NEEDED IN BED. ELEVATED LEFT LEG DURING SHIFT WHEN IN BED AND IN CHAIR AT BEDSIDE. AMBULATES TO RESTROOM WITH WALKER AND SLOW STEADY GAIT. VSS, MEDICATED PER ORDERS THROUGHOUT SHIFT. STATES CHANGED TO MEDICAL WITH POSSIBLE DISCHARGE TOMORROW. WILL CONTINUE TO MONITOR AND TREAT UNTIL CHANGE OF SHIFT.
--- NOTE | 2020-05-25 04:12 | NUR ---
QUALITY CONTROL SYSTEMS MANAGER SUMMARY PT IS AXO X3. PT HAS HAD NO C/O C/P OR SOB THIS SHIFT. THE PT HAS BEEN ABLE TO VOID W THE URINAL MULTIPLE TIMES THIS SHIFT. TELE- NSR IN THE 60'S THIS SHIFT. BP HAS BEEN STABLE THIS SHIFT. PT LEFT LEG APPEARS LESS RED AROUND HIS KNEE BUT BUT MORE SWOLLEN THIS SHIFT, LEFT LEG HAS BEEN ELEVATED ON TWO PILLOWS FOR THE WHOLE SHIFT. PT ALSO C/O PAIN IN HIS RIGHT FOREARM WHICH IS TENDER TO THE TOUCH, FOREARM IS NOT WARM BUT THE WHOLE FOREARM IS LIKE A RED BRUISE WHICH IT HAS BEEN PAST TWO DAYS. WILL REPORT TO COSME QUINTERO, WCBRENDA.
--- NOTE | 2020-05-25 12:14 | NUR ---
Spiritual care visit conducted. Patient is lying in bed and resting but easily awakens to the sound of his name. Patient tells me about his medical issues, his 90yr old spouse at home who won't be able to take care of him post hospitalization and his refusal to go to rehab (he had a bad experience in the past). He talks about his daughter who is in [place] who may be able to travel to [place] to care for him but he she has a drug history and he does not trust her. Patient tells me that he has studied all the major religions and did not find any to be of use to him but that he tries to live a life that matters because after this life there is nothing. I normalize patient's experience and reinforce helpful attitudes and provide therapeutic listening and a calming presence. Patient responds well and shows signs of reduced stress. I will continue to help patient to be open to discharge options.
--- NOTE | 2020-05-25 18:31 | NUR ---
SHIFT SUMMARY: PT ALERT AND ORIENTED X4. ON ROOM AIR SATING ABOVE 92%. TELE SHOWING SINUS RHYTHM. DENIES CHEST PAIN/PRESSURE. LEFT LEG CELLULITIS, RED, SWOLLEN AND WARM TO TOUCH. LEFT GREAT TOE SCAB. RIGHT FOREARM REDNESS AND TENDER TO TOUCH. DR. DASILVA IN TO SEE PATIENT THIS MORNING WITH NEW ORDERS FOR LASIX IV. PT IN BED WITH LEGS ELEVATED MOST OF SHIFT AND UP IN CHAIR FOR MEALS. DEPENDENT VENOUS STATSIS WHEN IN CHAIR. NOSE BLEED THIS AFTERNOON. NEW ORDERS PLACED FOR NASAL SPRAY. IN TO SEE PATIENT THIS AFTERNOON. UP TO BEDISDE COMMODE USING WALKER. WEAK WITH WALKING AND STANDING UP FROM COMMODE/CHAIR. CALL LIGHT IN REACH. BED REMAINED IN LOW LOCKED POSITION.
--- NOTE | 2020-05-25 21:58 | NUR ---
CARE ASSUMPTION. PT IS LYING IN BED DENYING ANY C/P OR PRESSURE. PT ASSISTED IN USING URINAL AT BEDSIDE. VSS, PT IS NOW MEDICAL STATUS. WCTM.
--- NOTE | 2020-05-26 04:27 | NUR ---
GASOLINE PLANT OPERATOR SUMMARY PT HAS DENIED ANY C/P OR SOB THIS SHIFT HOWEVER HE REPORTS BEING LIGHT HEADED WHEN STANDING UP. PT'S LEFT LEG HAS BEEN ELEVATED ON TWO PILLOWS FOR THE WHOLE SHIFT. PT'S RIGHT FOREARM IS STILL VERY TENDER TO THE TOUCH AND HAS BEEN HIS MAIN SOURCE OF PAIN THIS SHIFT. PT HAS BEEN ABLE TO USE URINAL AT THE BEDSIDE WITH ASSISTANCE. NO NEW S/S THIS SHIFT, WCTM.
[2020-05-26 05:14] LABS: Albumin, Blood 2.6 g/dL (3.4-5.0); Anion Gap 8 mmol/L (6-16); Blood Urea Nitrogen 41 mg/dL (8-24); Bun/Creatinine Ratio 38.3 (12.0-20.0); CO2, Blood 24 mmol/L (21-32); Calcium, Blood 8.4 mg/dL (8.5-10.1); Chloride, Blood 105 mmol/L (98-108); Creatinine, Blood 1.07 mg/dL (0.60-1.20); Glomerular Filtration Rate >60 (60-); Glucose, Blood 97 mg/dL (70-99); Phosphorus, Blood 3.2 mg/dL (2.5-4.9); Potassium, Blood 4.3 mmol/L (3.5-5.5); Sodium, Blood 137 mmol/L (136-145)
[2020-05-26 09:26] LABS: BASOPHILS ABSOLUTE AUTO 0.02 K/mm3 (0.00-0.23); BASOPHILS PERCENT AUTO 1 % (0-2); EOSINOPHILS ABSOLUTE AUTO 0.16 K/mm3 (0.00-0.68); EOSINOPHILS PERCENT AUTO 4 % (0-6); Hematocrit 28.8 % (37.0-53.0); IMMATURE GRAN ABSOLUTE AUTO 0.09 K/mm3 (0.00-0.10); IMMATURE GRAN PERCENT AUTO 2 % (0-1); LYMPHOCYTES ABSOLUTE AUTO 0.68 K/mm3 (0.84-5.20); LYMPHOCYTES PERCENT AUTO 16 % (21-46); MONOCYTES ABSOLUTE AUTO 0.37 K/mm3 (0.16-1.47); MONOCYTES PERCENT AUTO 9 % (4-13); Mean Corpuscular HGB 32.4 pg (26.0-34.0); Mean Corpuscular HGB Conc 31.3 g/dL (31.5-36.5); Mean Corpuscular Volume 104 fL (80-100); Mean Platelet Volume 9.7 fL (9.1-12.4); NEUTROPHILS ABSOLUTE AUTO 2.83 K/mm3 (1.96-9.15); NEUTROPHILS PERCENT AUTO 68 % (41-73); Platelet Count 242 K/mm3 (150-400); RDW Coefficient Variation 14.4 % (11.7-14.2); RDW Standard Deviation 54.4 fL (35.1-46.3); Red Blood Cell Count 2.78 M/mm3 (4.30-5.90); White Blood Cell Count 4.15 K/mm3 (4.00-11.30)
--- NOTE | 2020-05-26 16:31 | NUR ---
here to see the patient. Telephone report given to Shanique Anderson at this time.
--- NOTE | 2020-05-26 17:58 | NUR ---
Assumed Care @ 1750 Received report from Deidre PCU-RN. Patient arrived to unit via w/c approximately 1750. C/O R arm tenderness from IV infiltration a couple of days ago. 1p FWW transfer. Personal belongings arrived with patient. Hearing aid to R ear only. A/Ox3, [place] [employer] [place]. L leg elevated on two pillows per patient's request. Mepilex to coccyx C/D/I. Settled to room, call light in reach, bed in lowest position. WCTM and report to oncoming RN.
--- NOTE | 2020-05-26 23:07 | NUR ---
PATIENT DRINKING GOLYTELY. UP TO BSC MULTIPLE TIMES. CALL LIGHT IN REACH.
--- NOTE | 2020-05-27 00:26 | NUR ---
COVID-19 SWAB COLLECTED AND SENT TO LAB
[2020-05-27 01:02] LABS: Influenza A, PCR NEGATIVE (NEGATIVE); Influenza B, PCR NEGATIVE (NEGATIVE); Resp Syncytial Virus, PCR NEGATIVE (NEGATIVE); SARS-Cov-2 (COVID-19) PCR, MMC NEGATIVE (NEGATIVE)
--- NOTE | 2020-05-27 03:23 | NUR ---
SHIFT SUMMARY PATIENT HAD NO ACUTE CHANGES OBSERVED. GOLHUYLY STARTED THIS SHIFT. AXOX 3 AND ONE ASSIST TO BSC WITH FWW T/O SHIFT. PATIENT AT TIMES JUST STAYING ON BSC WITH LOOSE STOOLS. KNIK RIGHT EAR. PIV REMAINS INTACT. NPO>07:00 TODAY. VSS/AFEBRILE. DENIES CHEST PAIN AND SOB. REPORTED NAUSEOUS X ONE AFTER MULTIPLE BM'S WHICH RESOLVED. COOPERATIVE WITH CARE. CALL LIGHT IN REACH. BED IN LOWEST POSITION. WILL CONTINUE TO MONITOR UNTIL DAY SHIFT NURSE ASSUMES CARE.
[2020-05-27 04:40] LABS: Hematocrit 27.7 % (37.0-53.0); Hemoglobin 8.6 g/dL (13.5-17.5); Mean Corpuscular HGB 31.7 pg (26.0-34.0); Mean Corpuscular Volume 102 fL (80-100); Mean Platelet Volume 9.6 fL (9.1-12.4); Platelet Count 234 K/mm3 (150-400); RDW Coefficient Variation 14.4 % (11.7-14.2); RDW Standard Deviation 53.2 fL (35.1-46.3); Red Blood Cell Count 2.71 M/mm3 (4.30-5.90); White Blood Cell Count 4.42 K/mm3 (4.00-11.30)
[2020-05-27 05:05] LABS: Albumin, Blood 2.7 g/dL (3.4-5.0); Anion Gap 8 mmol/L (6-16); Blood Urea Nitrogen 30 mg/dL (8-24); Bun/Creatinine Ratio 30.4 (12.0-20.0); CO2, Blood 25 mmol/L (21-32); Calcium, Blood 8.3 mg/dL (8.5-10.1); Chloride, Blood 102 mmol/L (98-108); Creatinine, Blood 0.99 mg/dL (0.60-1.20); Glomerular Filtration Rate >60 (60-); Glucose, Blood 97 mg/dL (70-99); Phosphorus, Blood 2.7 mg/dL (2.5-4.9); Potassium, Blood 3.9 mmol/L (3.5-5.5); Sodium, Blood 135 mmol/L (136-145)
--- NOTE | 2020-05-27 10:53 | NUR ---
05/27/20 1053 Georgiana Ba History, Chart, Medications and Allergies reviewed before start of procedure. 3-LEAD EKG REVIEWED WITH PHYSICIAN PRIOR TO START OF PROCEDURE. MONITOR INTACT WITH CONTINUOUS PULSE OXIMETRY AND INTERMITTENT BP. O2 VIA N/C INTACT THROUGHOUT SEDATION/PROCEDURE. See Anesthesia record.
--- NOTE | 2020-05-27 12:46 | NUR ---
PT RETURNED FROM PROCEDURE- PER DR KENNY TAMSULOSIN AND BRILINATA WERE ADMINISTERED AFTER THE PT RETURNED. SPOKE TO DC PLANNING THEY ARE AWARE THE PLAN FOR THE PT IS TO DISCHARGE TO THE [facility] ON FRIDAY IF A BED IS AVAILABLE.
--- NOTE | 2020-05-27 16:34 | NUR ---
SHIFT SUMMARY- PT ALERT AND ORIENTED, 1PA TO THE BSC SBA WITH THE URINAL. PT MEDICATED FOR PAIN WITH TYLENOL ONCE. PT WALKED WITH PHYSICAL THERAPY TODAY AND WAS PROVIDED WITH A RECLINER CHAIR. PT HAS BEEN MORE COMFORTABLE SINCE THE CHAIR WAS PROVIDED. PLAN IS FOR THE PT TO STAY THROUGH THE WEEKEND AND DC TO [facility] ON FRIDAY, PENDING ACCEPTANCE AND BED AVAILABILITY. PT FAMILY REQUESTED TO BE NOTIFIED WHEN THE PT IS ACCEPTED AND DISCHARGE PLANS ARE KNOWN. WILL PASS ON TO NIGHT RN IN BEDSIDE REPORT.
--- NOTE | 2020-05-28 03:38 | NUR ---
SHIFT SUMMARY PATIENT HAD NO ACUTE CHANGES OBSERVED. AXOX 3 AND ONE ASSIST TO BSC WITH FWW. USES URINAL AT BEDSIDE. [place] RIGHT EAR. PIV REMAINS INTACT. DENIES PAIN, SOB, AND N/V. VSS/AFEBRILE. COOPERATIVE WITH CARE. CALL LIGHT IN REACH. BED IN LOWEST POSITION. WILL CONTINUE TO MONITOR UNTIL DAY SHIFT NURSE ASSUMES CARE.
[2020-05-28 04:50] LABS: BASOPHILS ABSOLUTE AUTO 0.01 K/mm3 (0.00-0.23); BASOPHILS PERCENT AUTO 0 % (0-2); EOSINOPHILS ABSOLUTE AUTO 0.12 K/mm3 (0.00-0.68); EOSINOPHILS PERCENT AUTO 3 % (0-6); Hematocrit 26.4 % (37.0-53.0); Hemoglobin 8.3 g/dL (13.5-17.5); IMMATURE GRAN ABSOLUTE AUTO 0.06 K/mm3 (0.00-0.10); IMMATURE GRAN PERCENT AUTO 2 % (0-1); LYMPHOCYTES ABSOLUTE AUTO 0.69 K/mm3 (0.84-5.20); LYMPHOCYTES PERCENT AUTO 19 % (21-46); MONOCYTES ABSOLUTE AUTO 0.37 K/mm3 (0.16-1.47); MONOCYTES PERCENT AUTO 10 % (4-13); Mean Corpuscular HGB 32.3 pg (26.0-34.0); Mean Corpuscular HGB Conc 31.4 g/dL (31.5-36.5); Mean Corpuscular Volume 103 fL (80-100); Mean Platelet Volume 9.7 fL (9.1-12.4); NEUTROPHILS ABSOLUTE AUTO 2.46 K/mm3 (1.96-9.15); NEUTROPHILS PERCENT AUTO 66 % (41-73); Platelet Count 238 K/mm3 (150-400); RDW Coefficient Variation 14.3 % (11.7-14.2); RDW Standard Deviation 52.1 fL (35.1-46.3); Red Blood Cell Count 2.57 M/mm3 (4.30-5.90); White Blood Cell Count 3.71 K/mm3 (4.00-11.30)
--- NOTE | 2020-05-28 19:30 | NUR ---
PT RESTING IN CHAIR AFTER DINNER AND MEDICATION ADMIN. PT MAKES NO COMPLAINTS OF CHEST PAIN OR SOB AT THIS TIME. IV SL AND WNL, ALERT AND ORIENTED X4, BED IN LOW POSITION AND CALL LIGHT WITHIN REACH. STAFF WILL CONT. TO MONITOR.
[2020-05-29 04:59] LABS: BASOPHILS ABSOLUTE AUTO 0.01 K/mm3 (0.00-0.23); BASOPHILS PERCENT AUTO 0 % (0-2); EOSINOPHILS ABSOLUTE AUTO 0.13 K/mm3 (0.00-0.68); EOSINOPHILS PERCENT AUTO 3 % (0-6); Hematocrit 26.5 % (37.0-53.0); Hemoglobin 8.4 g/dL (13.5-17.5); IMMATURE GRAN ABSOLUTE AUTO 0.05 K/mm3 (0.00-0.10); IMMATURE GRAN PERCENT AUTO 1 % (0-1); LYMPHOCYTES ABSOLUTE AUTO 0.71 K/mm3 (0.84-5.20); LYMPHOCYTES PERCENT AUTO 16 % (21-46); MONOCYTES PERCENT AUTO 11 % (4-13); Mean Corpuscular HGB 32.9 pg (26.0-34.0); Mean Corpuscular HGB Conc 31.7 g/dL (31.5-36.5); Mean Corpuscular Volume 104 fL (80-100); Mean Platelet Volume 9.6 fL (9.1-12.4); NEUTROPHILS ABSOLUTE AUTO 2.99 K/mm3 (1.96-9.15); NEUTROPHILS PERCENT AUTO 68 % (41-73); Platelet Count 223 K/mm3 (150-400); RDW Coefficient Variation 14.4 % (11.7-14.2); RDW Standard Deviation 53.9 fL (35.1-46.3); Red Blood Cell Count 2.55 M/mm3 (4.30-5.90); White Blood Cell Count 4.39 K/mm3 (4.00-11.30)
--- NOTE | 2020-05-29 07:24 | NUR ---
SHIFT SUMMARY ACUTE CHF/NSTEMI, A/O X4, VSS, TOLERATING PO, DOING WELL W/ 1500 ML FLUID RESTRICTION, VOIDING WELL, PASSING FLATUS. SCHEDUL[facility]. DENIES PAIN. CALL LIGHT IN REACH, WILL CONTINUE TO MONITOR AND REPORT TO ONCOMING DAY RN.
[2020-05-29] MEDS ORDERED: EUTHYROX175 MCG PO (09:41)
[2020-05-29] MEDS ORDERED: ERGO50000 PO (09:42)
[2020-05-29] MEDS ORDERED: BENADRYL25 MG PO (09:44)
[2020-05-29] MEDS ORDERED: PROM25 PO (09:44)
[2020-05-29 12:30] LABS: Influenza A, PCR NEGATIVE (NEGATIVE); Influenza B, PCR NEGATIVE (NEGATIVE); Resp Syncytial Virus, PCR NEGATIVE (NEGATIVE); SARS-Cov-2 (COVID-19) PCR, MMC NEGATIVE (NEGATIVE)
[2020-05-29] MEDS ORDERED: LOSA25 PO (12:33)
[2020-05-29] MEDS ORDERED: DOCU100 PO (12:33)
[2020-05-29] MEDS ORDERED: OXYM.05NI (12:36)
[2020-05-29] MEDS ORDERED: PANT20 PO (12:37)
[2020-05-29] MEDS ORDERED: SENN187 PO (12:37)
[2020-05-29] MEDS ORDERED: TAMS.4ER PO (12:38)
[2020-05-29] MEDS ORDERED: TRAM50 PO (12:38)
--- NOTE | 2020-05-29 14:12 | NUR ---
PT PENDING D/C [facility]. IV PULLED INTACT. NO TELE. CALLED [phone], EXT [phone] RN STATES WILL CALL BACK FOR REPORT. GVE BASIC TO MOLD RUNNER.
--- NOTE | 2020-05-29 14:30 | NUR ---
pt out door with escort from [facility]
--- NOTE | 2020-05-29 14:41 | NUR ---
[facility] called. report given. [facility] 1430
== END 2020-05-29 14:45 | DRG 280 ==
LOC: ER 13:50 → MEDS 17:50 → PCU 17:50 → MEDS 05-26 17:45 → ENPENDDIS 05-29 11:56 → MEDS 05-29 14:45
PROVIDERS: Emergency Medicine; Internal Medicine; Internal Medicine Cardiovascular Disease; Internal Medicine Gastroenterology; Nurse Practitioner Acute Care; Physician Assistant; ADMIT Internal Medicine
PROC: 30233N1 Transfusion of Nonautologous Red Blood Cells into Peripheral Vein, Percutaneous Approach (ICD-10-PCS; principal; 2020-05-20)
PROC: 0DJD8ZZ Inspection of Lower Intestinal Tract, Via Natural or Artificial Opening Endoscopic (ICD-10-PCS; 2020-05-27)
PROC: 0DJ08ZZ Inspection of Upper Intestinal Tract, Via Natural or Artificial Opening Endoscopic (ICD-10-PCS; 2020-05-27 09:45)
DX: I21.4 Non-ST elevation (NSTEMI) myocardial infarction (principal); J96.01 Acute respiratory failure with hypoxia; I50.33 Acute on chronic diastolic (congestive) heart failure; K25.4 Chronic or unspecified gastric ulcer with hemorrhage; N17.9 Acute kidney failure, unspecified; I13.0 Hypertensive heart and chronic kidney disease with heart failure and stage 1 through stage 4 chronic kidney disease, or unspecified chronic kidney disease; L03.116 Cellulitis of left lower limb; C90.00 Multiple myeloma not having achieved remission; I47.1 Supraventricular tachycardia; Z20.822 Contact with and (suspected) exposure to COVID-19; I25.10 Atherosclerotic heart disease of native coronary artery without angina pectoris; N18.30 Chronic kidney disease, stage 3 unspecified; D50.9 Iron deficiency anemia, unspecified; N40.1 Benign prostatic hyperplasia with lower urinary tract symptoms; R33.8 Other retention of urine; I45.10 Unspecified right bundle-branch block; E89.0 Postprocedural hypothyroidism; E78.5 Hyperlipidemia, unspecified; G47.33 Obstructive sleep apnea (adult) (pediatric); H91.90 Unspecified hearing loss, unspecified ear; E66.9 Obesity, unspecified; I71.2 Thoracic aortic aneurysm, without rupture; K63.5 Polyp of colon; K64.8 Other hemorrhoids; K26.9 Duodenal ulcer, unspecified as acute or chronic, without hemorrhage or perforation; K20.80 Other esophagitis without bleeding; T39.015A Adverse effect of aspirin, initial encounter; Z95.5 Presence of coronary angioplasty implant and graft; Z95.1 Presence of aortocoronary bypass graft; Z86.73 Personal history of transient ischemic attack (TIA), and cerebral infarction without residual deficits; Z88.8 Allergy status to other drugs, medicaments and biological substances; Z86.010 Personal history of colon polyps; Z79.899 Other long term (current) drug therapy; Z79.82 Long term (current) use of aspirin; Z86.011 Personal history of benign neoplasm of the brain; Z87.891 Personal history of nicotine dependence; Z68.30 Body mass index [BMI] 30.0-30.9, adult; Z85.850 Personal history of malignant neoplasm of thyroid
CPT/HCPCS: 0241U; 36415; 36430; 51702; 71045; 78452; 80048; 80053; 80061; 80069; 81001; 81003; 82274; 82607; 82746; 82947; 83540; 83550; 83735; 83880; 84100; 84145; 84439; 84443; 84481; 84484; 85025; 85027; 85610; 85730; 86850; 86900; 86901; 86923; 87040; 93005; 93010; 93017; 93306; 93971; 94640; 96374; 97110; 97116; 97162; 97530; 99284-25; A9270; A9500; C9113; J0360; J0690; J0706; J1644; J1940; J2405; J2704; J2785; J2916; J7050; J7120; P9016